=== PATIENT | male | born 1935 | race Caucasian/White ===

== ENCOUNTER 2018-12-20 20:00 | Emergency (ER) | payer MEDICARE, OTHER ==
[2018-12-20 20:33] VITALS: BP 129/89
--- NOTE | 2018-12-20 21:20 | UC ---
General HPI - HPI Summary HPI Summary: Pt is an 83 yo male presents to with . Since 2pm pt has had BRBPR. Pt states has had mild lower abdominal cramping - pt has had 3 loose stool - bloody appearing Pt wtih a h/o hemorrhoids and had to be hospitalized once for bleeding - pt assumed this is cause. No lightheadedness. n on/v. no cp sob. Pt is on Xarelto x 7 weeks for atrial fibrillation. No bruising medication reviewed this visit d - History of Current Complaint Chief Complaint: UCGI Stated Complaint: soft tissue Time Seen by Provider: 12/20/18 21:02 Hx Obtained From: Patient Pain Intensity: 0 - Allergy/Home Medications Allergies/Adverse Reactions: Allergies Allergy/AdvReac Type Severity Reaction Status Date / Time Penicillins Allergy Rash And Verified 12/20/18 20:34 Itching Art Wrap AdvReac Itching Uncoded 12/20/18 20:34 Home Medications: Home Medications Docusate CAP* [Colace Cap*] 100 mg PO DAILY 12/20/18 [History Confirmed 12/20/18 ] Mirabegron (NF) [Myrbetriq (NF)] 25 mg PO DAILY 12/20/18 [History Confirmed ] PMH/Surg Hx/FS Hx/Imm Hx Previously Healthy: Yes Cardiovascular History: Hypertension, Atrial Fibrillation - Surgical History Surgical History: Yes Surgery Procedure, Year, and Place: cholecystectomy - Family History Known Family History: Positive: Non-Contributory - Social History Occupation: Retired Lives: With Family Alcohol Use: Rare Substance Use Type: None Smoking Status (MU): Never Smoked Tobacco - Immunization History Most Recent Influenza Vaccination: 04/18 Most Recent Pneumonia Vaccination: Prevnar 04/18 Review of Systems All Other Systems Reviewed And Are Negative: Yes Constitutional: Positive: Negative Skin: Positive: Negative Eyes: Positive: Negative Gastrointestinal: Positive: Abdominal Pain, Other - BRBPR Physical Exam - Summary Physical Exam Summary: Vital Signs Reviewed: Yes A+Ox3, no distress Eyes: Conjunctiva Clear, NADER. EOM intact and full ENT: Hearing grossly normal TM x 2 clear, mmoist, uvula midline, no exudate, no erythema Neck: Positive: Supple Respiratory: Positive: No respiratory distress, No accessory muscle use + CTA throughout no w/r Cardiovascular: RRR nl s1, s2 no m/r CBT <2 sec abd soft + BS nt/nd no guarding, no distension Rectal exam: ADRIAN Rueda at bedside - Pt with apparent BRBPR. no clots no external hemorrhoids note, no fissure, no pain with rectal + grossly blood Musculoskeletal Exam: DUMONT x 4 without difficulty Strength Intact, ROM Intact Neurological: Positive: Alert, + sensation throughout Psychological: Positive: Normal Response To Family Skin: Positive: no rash, no ecchymosis Triage Information Reviewed: Yes Vital Signs: Initial Vital Signs Temp 98.6 F 12/20/18 20:28 Pulse 81 12/20/18 20:28 Resp 16 12/20/18 20:28 BP 129/89 12/20/18 20:28 Pulse Ox 98 12/20/18 20:28 Course/Dx - Course Course Of Treatment: Pt presents to UC with BRBPR x 3 times since 2pm. Pt with mild crampy abdominal pain and loose stools. Pt denies cp, sob, n/v Pt is on Xarelto No h/o GI bleeding + h/o hemorrhoid bleeding VSS pt without obvious source of rectal bleeding hemodynamically stable concern for GI bleeding given cramping and bloody appearing diarrhea pt on xarelto recommend to ED pt and sound in agreement - will drive by POV report given to sports book board attendant - aware of pt npo - direct to ED - Diagnoses Provider Diagnosis: BRBPR (bright red blood per rectum) Discharge - Sign-Out/Discharge Documenting (check all that apply): Patient Departure All imaging exams completed and their final reports reviewed: No Studies - Discharge Plan Condition: Stable Disposition: HOME-RECOMMEND TO ED Patient Education Materials: Melena (ED) Referrals: Jadiel Ayala MD [Primary Care Provider] - Additional Instructions: The doctor that evaluated you today thinks that you need additional testing that can be completed the emergency department. It is recommended that you go directly to emergency department for further evaluation. This evaluation may include blood work or imaging. This testing will be directed and decided by the provider that evaluate you at the emergency department. If pain becomes worse, you feel lightheaded, you have uncontrolled vomiting, or you have any other concerns while you are being driven to emergency department as recommended to pullover and contact 911. - Billing Disposition and Condition Condition: STABLE Disposition: Home-Recommend to ED
== END 2018-12-20 21:55 | disposition home health service (06) ==
LOC: UCEAST 20:00
DX: K62.5 Hemorrhage of anus and rectum (principal); Z79.01 Long term (current) use of anticoagulants
CPT/HCPCS: 99212; G0463

== ENCOUNTER 2018-12-20 22:08 | Observation (INO) | payer MEDICARE ==
--- NOTE | 2018-12-20 22:44 | ED ---
GI/ HPI - HPI Summary HPI Summary: 83 year old M presenting to [facility] from [facility] accompanied by with a chief complaint of rectal bleeding since 14:00 today. The patient rates the pain 3/10 in severity. Symptoms aggravated by nothing. Symptoms alleviated by nothing. Patient reports lower abdominal pain. He denies dizziness and lightheadedness. Patient thought he had a bleeding hemorrhoid because he had similar symptoms in 2018. Patient was seen by Dr. Contreras earlier at [facility] who referred patient to ED. Patient takes Xarelto for hx A-fib and 81 mg aspirin. His last colonoscopy was in 2015 which was normal. - History of Current Complaint Chief Complaint: EDGIBleed Time Seen by Provider: 12/20/18 22:35 Stated Complaint: RECTAL BLEEDING PER PT Hx Obtained From: Patient Onset/Duration: Started Hours Ago - 9, Still Present Timing: Constant Current Severity: Mild Pain Intensity: 3 Associated Signs and Symptoms: Positive: Negative - dizziness, lightheadedness, Other: - lower abdominal pain Aggravating Factor(s): Nothing Alleviating Factor(s): Nothing - Allergy/Home Medications Allergies/Adverse Reactions: Allergies Allergy/AdvReac Type Severity Reaction Status Date / Time Penicillins Allergy Rash And Verified 12/20/18 20:34 Itching Art Wrap AdvReac Itching Uncoded 12/20/18 20:34 Home Medications: Home Medications Metoprolol Succinate XL TAB* [Toprol XL TAB*] 25 mg PO DAILY 12/20/18 [History Confirmed 12/20/18] Primidone TAB(*) [Mysoline TAB(*)] 50 mg PO DAILY 12/20/18 [History Confirmed ] Rivaroxaban TAB(*) [Xarelto 15 mg(*)] 15 mg PO DAILY 12/20/18 [History Confirmed 12/20/18] PMH/Surg Hx/FS Hx/Imm Hx Previously Healthy: No Endocrine/Hematology History: Denies: Hx Diabetes, Hx Thyroid Disease Cardiovascular History: Reports: Hx Atrial Fibrillation Denies: Hx Hypertension Respiratory History: Denies: Hx Asthma, Hx Chronic Obstructive Pulmonary Disease (COPD) GI History: Denies: Hx Ulcer Sensory History: Reports: Hx Contacts or Glasses Opthamlomology History: Reports: Hx Contacts or Glasses - Surgical History Surgery Procedure, Year, and Place: cholecystectomy. colonoscopy Infectious Disease History: No Infectious Disease History: Reports: Hx Shingles - Denies: Hx Clostridium Difficile, Hx Hepatitis, Hx Human Immunodeficiency Virus (HIV), Hx of Known/Suspected MRSA, Hx Tuberculosis, Hx Known/Suspected VRE , Hx Known/Suspected VRSA, History Other Infectious Disease, Traveled Outside the [place] in Last 30 Days - Family History Known Family History: Positive: Other - colon cancer in father - Social History Alcohol Use: Rare Hx Substance Use: No Substance Use Type: Reports: None Hx Tobacco Use: No Smoking Status (MU): Never Smoked Tobacco Review of Systems Positive: Abdominal Pain, Other - rectal bleeding Neurological: Negative - dizziness, lightheadedness All Other Systems Reviewed And Are Negative: Yes Physical Exam - Summary Physical Exam Summary: VITAL SIGNS: Reviewed. GENERAL: Patient is a well-developed and nourished MALE who is lying comfortable in the stretcher. Patient is not in any acute respiratory distress. HEAD AND FACE: No signs of trauma. No ecchymosis, hematomas or skull depressions. No sinus tenderness. EYES: PERRLA, EOMI x 2, No injected conjunctiva, no nystagmus. EARS: Hearing grossly intact. Ear canals and tympanic membranes are within normal limits. MOUTH: Oropharynx within normal limits. NECK: Supple, trachea is midline, no adenopathy, no JVD, no carotid bruit, no c- spine tenderness, neck with full ROM CHEST: Symmetric, no tenderness at palpation LUNGS: Clear to auscultation bilaterally. No wheezing or crackles. CVS: Regular rate and rhythm, S1 and S2 present, no murmurs or gallops appreciated. ABDOMEN: Soft, non-tender. No signs of distention. No rebound no guarding, and no masses palpated. Bowel sounds are normal. EXTREMITIES: FROM in all major joints, no edema, no cyanosis or clubbing. NEURO: Alert and oriented x 3. No acute neurological deficits. Speech is normal and follows commands. SKIN: Dry and warm. Patient has an old ecchymotic area on his back from falling 1.5 months ago. Rectal exam chaperoned by hospital aide: Patient has no masses, an empty rectum. There is maroon blood on the examining finger. Triage Information Reviewed: Yes Vital Signs On Initial Exam: Initial Vitals Temp Pulse Resp BP Pulse Ox 97.7 F 79 18 123/101 97 12/20/18 22:16 12/20/18 22:16 12/20/18 22:16 12/20/18 22:16 12/20/18 22:16 Vital Signs Reviewed: Yes Diagnostics - Vital Signs Vital Signs Temp Pulse Resp BP Pulse Ox 12/20/18 22:16 97.7 F 79 18 123/101 97 - Laboratory Result Diagrams: 12/20/18 23:00 12/20/18 23:00 Lab Statement: Any lab studies that have been ordered have been reviewed, and results considered in the medical decision making process. - EKG 2246 Cardiac Rate: NL - 75 BPM EKG Rhythm: Atrial Fibrillation Re-Evaluation - Re-Evaluation First Eval Re-Evaluation Time: 23:46 Comment: Patient is agreeable to admission plan GIGU Course/Dx - Course Course Of Treatment: 83 year old M presenting to [facility] from [facility] accompanied by with a chief complaint of rectal bleeding and lower abdominal pain since 14:00 today. He denies dizziness and lightheadedness. Patient thought he had a bleeding hemorrhoid because he had similar symptoms in 2018. Physical exam findings: Patient has no masses, an empty rectum. There is maroon blood on the examining finger. Patient has an old ecchymotic area on his back from falling 1.5 months ago. An EKG reveals atrial fibrillation at 75 BPM. Test results with no significant abnormalities except for RBC 4.16, Hgb 12.7, Hct 37, MPV 7.3, INR 1.19, BUN 25, BUN/Creatinine ratio 22.1, glucose 110. Discussed patient care with Dr. Merchant, hospitalist, at 23:43 who agreed to admit patient. The patient will be admitted to the hospitalist. Patient is agreeable to discharge plan. - Diagnoses Provider Diagnoses: Lower GI bleed - Physician Notifications Discussed Care Of Patient With: Tayler Merchant Time Discussed With Above Provider: 23:43 Instructed by Provider To: Other - Dr. Merchant, hospitalist, agrees to admit patient Discharge - Sign-Out/Discharge Documenting (check all that apply): Patient Departure - Admit Patient Received Moderate/Deep Sedation with Procedure: No - Discharge Plan Condition: Stable Disposition: ADMITTED TO [facility] Referrals: Jadiel Ayala MD [Primary Care Provider] - - Attestation Statements Document Initiated by Scribe: Yes Documenting Scribe: Pao Aguero Provider For Whom Scribe is Documenting (Include Credential): Alice Funez MD Scribe Attestation: I, Pao Aguero, scribed for Alice Funez MD on 12/20/18 at 2343. Status of Scribe Document: Ready
[2018-12-20 23:11] LABS: ABS Eosinophils 0.2 10^3/ul (0-0.6); ABS Lymphocytes 2.1 10^3/ul (1.0-4.8); ABS Monocytes 0.7 10^3/ul (0-0.8); ABS Neutrophils 3.8 10^3/ul (1.5-7.7); Eosinophil % 2.2 %; Hematocrit 37 % (42-52); Hemoglobin 12.7 g/dL (14.0-18.0); Lymphocyte % 31.1 %; Mean Corpuscular HGB Conc 34 g/dL (31-36); Mean Corpuscular Hemoglobin 31 pg (27-31); Mean Corpuscular Volume 89 fL (80-94); Mean Platelet Volume 7.3 fL (7.4-10.4); Platelet Count 207 10^3/uL (150-450); Red Blood Count 4.16 10^6 /uL (4.18-5.48); Red Cell Distribution Width 15 % (10-15); White Blood Count 6.8 10^3/uL (3.5-10.8)
[2018-12-20 23:20] LABS: Activated Partial Thrombo Time 32.2 seconds (26.0-38.0); INR 1.19 (0.82-1.09)
[2018-12-20 23:30] LABS: Albumin 3.9 g/dL (3.2-5.2); Albumin/Globulin Ratio 1.5 (1-3); BUN/Creatinine Ratio 22.1 (8-20); Globulin 2.6 g/dL (2-4); Potassium 4.9 mmol/L (3.5-5.0); Total Bilirubin 0.4 mg/dL (0.2-1.0); Total Protein 6.5 g/dL (6.4-8.9)
[2018-12-21 04:03] LABS: Hematocrit 34 % (42-52); Hemoglobin 11.6 g/dL (14.0-18.0)
[2018-12-21] MEDS ORDERED: Acetaminophen TAB* 325 MG PO PRN (04:03)
--- NOTE | 2018-12-21 06:08 | HP ---
HISTORY AND PHYSICAL: DATE OF ADMISSION: 12/21/18 PRIMARY CARE PROVIDER: Jadiel Ayala MD PRIMARY CONTACT: Sonia Mckee, the patient's . CODE STATUS: Full. CHIEF COMPLAINT: Bright red blood per rectum. SOURCE OF INFORMATION: HPI is obtained from the patient who is an excellent historian. HISTORY OF PRESENT ILLNESS: This is an 83-year-old man with a past medical history of recently diagnosed atrial fibrillation, placed on Xarelto within the last 2 months, tremor, overactive bladder, and BPH who is presenting from [facility] to the emergency room with 1 day of bright red blood per rectum. The patient states starting around 2 p.m., he had a bloody bowel movement and noticed significant blood in the bowl. He went to the [facility] because he thought that it was possibly an external hemorrhoid and guaiac was positive with no hemorrhoid noted in [facility] and thus he was referred to the emergency room. He has mild lower abdominal crampy pain when he has bowel movements, but otherwise has no other symptoms and was in his usual state of health. He has no melena. No diarrhea. No constipation. No hematemesis. No nausea. In the emergency room, his vital signs were stable with temperature 97.7, heart rate 79, oxygen saturation 97% on room air, respiratory rate 18, blood pressure 123/101. Labs were done, which show a hemoglobin of 12.7, hematocrit of 37, platelets of 207. No imaging was done. EKG was done, which showed atrial fibrillation, rate controlled in 80s with no signs of ischemia. The patient continued to have several bloody bowel movements in the emergency room, a total of 3 and thus the patient was admitted for observation given recurrent symptoms. PAST MEDICAL HISTORY: 1. AFib, recently diagnosed within the last 3 months, on Xarelto. 2. Tremor. 3. Overactive bladder. 4. BPH. PAST SURGICAL HISTORY: Status post cholecystectomy. MEDICATIONS: Prior to admission: 1. Aspirin 81 mg p.o. daily. 2. CoQ10 50 mg p.o. daily. 3. Tylenol PM 1 tablet q.h.s. p.r.n. 4. Fish oil 1000 mg p.o. daily. 5. Glucosamine 2 tabs p.o. daily. 6. Myrbetriq 25 mg p.o. daily. 7. Multivitamins 1 tab p.o. daily. 8. Rivaroxaban 15 mg p.o. daily. 9. Docusate 100 mg p.o. daily. 10. Metoprolol succinate 25 mg p.o. daily. 11. Primidone 50 mg p.o. daily. 12. Tamsulosin 0.4 mg p.o. daily. ALLERGIES: To PENICILLIN and JAUN WRAP. 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 He lives at home with his . Tobacco: He is a lifetime nonuser. Alcohol: He is a social user, scant. Illicits: Never. FAMILY HISTORY: Reviewed and noncontributory. He reports both his parents were healthy. REVIEW OF SYSTEMS: Constitutional: Negative for fevers or chills. HEENT: Negative for headaches, vision changes, or sore throat. Cardiovascular: Negative for chest pain, palpitations, orthopnea. Respiratory: Negative for shortness of breath, cough, pleuritic chest pain. GI: Negative for nausea, vomiting, diarrhea. Positive for abdominal pain. Positive for bright red blood per rectum. : Negative for dysuria and hematuria. Musculoskeletal: Negative for myalgias, arthralgias. Skin: Negative for rashes or lesions. Neurologic: Negative for focal weakness or numbness. Psychiatric: Negative for depression, anxiety. Endocrine: Negative for polyuria, polydipsia. Heme: Negative for easy bruising, bleeding, or lymphadenopathy. PHYSICAL EXAMINATION GENERAL APPEARANCE: This is a very well-appearing male, in no acute distress, pleasant, interactive. VITAL SIGNS: At the time of physical exam, blood pressure is 123/101, temperature 97.7, heart rate 79, respiratory rate 18. HEENT: Pupils are equal and reactive. Extraocular muscles are intact. Moist mucous membranes. NECK: Supple with no supraclavicular or cervical lymphadenopathy. RESPIRATORY: His lungs are clear to auscultation bilaterally. CARDIAC: Irregularly irregular rhythm with a soft diastolic murmur, best heard in the right upper sternal border, 1/6. GI: His belly is distended, but soft, nontender with normoactive bowel sounds. No guarding. No rebound. No organomegaly. EXAM: Emergency room provider provided rectal exam, noted no external hemorrhoids and maroon blood in the vault. MUSCULOSKELETAL: He moves all 4 limbs freely without pain. EXTREMITIES: He has 2+ DP pulses in bilateral lower extremities, symmetrical. No edema. NEURO: Cranial nerves II through XII are intact. He is A and O x4. No focal neurological deficits. SKIN: No rashes or lesions. DIAGNOSTIC STUDIES/LAB DATA: Labs and studies, white blood cell count 6.8, hemoglobin 12.7, hematocrit 37, platelets 207. INR 1.19. Sodium 136, potassium 4.9, chloride 105, BUN 25, creatinine 1.13, glucose 110. AST 26, ALT 24, alk phos 61. EKG shows atrial fibrillation, rate controlled with no evidence of ischemia. Labs and EKG reviewed by myself. ASSESSMENT AND PLAN: This is an 83-year-old man with past medical history of recently diagnosed atrial fibrillation, on Xarelto; tremor; overactive bladder, who is presenting with bright red blood per rectum, the differential for this internal hemorrhoids, diverticular bleed, less likely upper GI bleed given hemodynamic stability and less likely external hemorrhoids given none seen on exam. He will be admitted for observation given he has continued bloody bowel movements here in the emergency room and repeat H and H dropped from 12.7 to 11.6 within the time he was in the hospital. 1. Bright red blood per rectum. Differential as above. We will trend H and H. We will continue docusate. I have placed a consult to GI to discuss the merits of intervention with this patient. We will hold Xarelto. We will hold aspirin at this time. We will start pantoprazole 40 mg IV q.24 hours given the very unlikely event this is related to upper GI bleed. 2. Atrial fibrillation. The patient is rate controlled. CHADS-VASc score is 1 based on age alone. If the patient is unable to tolerate anticoagulation, it is possible that he could have shared decision making discussion with primary care physician to discuss the risks and benefits of anticoagulation moving forward. For now, we will continue metoprolol and hold anticoagulants given active bleed. 3. Benign prostatic hypertrophy. We will continue home tamsulosin. 4. Tremor. We will continue home primidone. 5. Overactive bladder. Myrbetriq is not on formulary. We will hold for now. 6. DVT prophylaxis. We will hold all given active bleed. 7. Diet. We will place the patient on clear liquid diet for now. He can tolerate as advanced pending GI discussion. 8. Disposition. The patient is stable for observation status for continued H and H monitoring given ongoing active bloody bowel movements here in the emergency room. 9. Code status is full. TIME SPENT: Thirty-five minutes were spent on the planning of this admission with over half of that spent directly at the bedside with the patient providing direct patient care. Plan of care is discussed with the patient who agrees with admission and has no further questions. [id number]/CPS #: [id number] GEOVANY
[2018-12-21] MEDS: Pantoprazole TAB * 40 MG TAB PO SCH (06:25)
[2018-12-21] MEDS: Tamsulosin CAP* 0.4 MG PO SCH (08:43)
[2018-12-21] MEDS: Docusate CAP* 100 MG PO SCH (08:43)
[2018-12-21] MEDS: Metoprolol Succinate XL TAB* 25 MG PO SCH (08:43)
[2018-12-21] MEDS ORDERED: Primidone TAB(*) 50 MG PO SCH (09:00)
--- NOTE | 2018-12-21 09:41 | PN ---
Subjective Date of Service: 12/21/18 Interval History: Patient reports 3 additional bloody bowel movements since midnight. He is unsure if there was formed stool in two of the three bowel movements due to the amount of bright red blood in the toilet. He reports intermittent, central, lower abdominal pain which has unchanged since admission. Denies dizziness, fever/chills, chest pain, difficulty breathing, nausea, vomiting. Tolerating clear liquid diet. Objective Active Medications: Acetaminophen (Tylenol Tab*) 650 mg PO Q4H PRN PRN Reason: FEVER/PAIN Docusate Sodium (Colace Cap*) 100 mg PO DAILY [facility] Last Admin: 12/21/18 08:43 Dose: Not Given Metoprolol Succinate (Toprol Xl Tab*) 25 mg PO DAILY [facility] Last Admin: 12/21/18 08:43 Dose: 25 mg Pantoprazole Sodium (Protonix Tab*) 40 mg PO Q24H [facility] Last Admin: 12/21/18 06:25 Dose: 40 mg Primidone (Mysoline Tab(*)) 50 mg PO DAILY [facility] Last Admin: 12/21/18 08:44 Dose: 50 mg Tamsulosin HCl (Flomax Cap*) 0.4 mg PO DAILY [facility] Last Admin: 12/21/18 08:43 Dose: 0.4 mg Vital Signs - 8 hr 12/21/18 12/21/18 12/21/18 02:00 02:02 02:32 Temperature Pulse Rate 80 85 81 Respiratory 13 12 13 Rate Blood Pressure 142/102 153/89 (mmHg) O2 Sat by Pulse 96 97 95 Oximetry 12/21/18 12/21/18 12/21/18 03:00 03:02 03:32 Temperature Pulse Rate 80 83 77 Respiratory 13 15 14 Rate Blood Pressure 132/86 113/70 (mmHg) O2 Sat by Pulse 96 95 95 Oximetry 12/21/18 12/21/18 12/21/18 04:00 04:02 04:32 Temperature Pulse Rate 84 84 Respiratory 11 14 Rate Blood Pressure 134/94 134/93 (mmHg) O2 Sat by Pulse 97 95 Oximetry 12/21/18 12/21/18 12/21/18 05:00 05:02 05:07 Temperature 98.3 F Pulse Rate 78 81 82 Respiratory 13 13 20 Rate Blood Pressure 130/91 148/94 (mmHg) O2 Sat by Pulse 95 95 99 Oximetry 12/21/18 12/21/18 05:30 07:24 Temperature 97.4 F 97.8 F Pulse Rate 80 77 Respiratory 14 16 Rate Blood Pressure 130/91 116/65 (mmHg) O2 Sat by Pulse 96 99 Oximetry Oxygen Devices in Use Now: None Appearance: Elderly, white male laying upright in hospital bed, appearing comfortable and in NAD Eyes: No Scleral Icterus, PERRLA Ears/Nose/Mouth/Throat: Mucous Membranes Moist Neck: NL Appearance and Movements; NL JVP Respiratory: Symmetrical Chest Expansion and Respiratory Effort, Clear to Auscultation Cardiovascular: NL Sounds; No Murmurs; No JVD, RRR Abdominal: NL Sounds; No Tenderness; No Distention Extremities: No Edema, No Clubbing, Cyanosis, - - Bilateral UE tremor, consistent with chronic essential tremor Skin: No Rash or Ulcers Neurological: Alert and Oriented x 3, NL Muscle Strength and Tone Result Diagrams: 12/21/18 13:47 12/20/18 23:00 Assess/Plan/Problems-Billing Assessment: 83 yo male with PMHx afib (on xarelto), tremor, overactive bladder, and BPH presents to the ED c/o multiple episodes of bright red blood per rectum. - Patient Problems (1) Bright red blood per rectum Code(s): K62.5 - HEMORRHAGE OF ANUS AND RECTUM SNOMED Code(s): 21368355 Comment: -multiple episodes of BRBPR without evidence of hemorrhoid on rectal exam in ED -patient has known hx of diverticulosis, suspect a diverticular bleed as source of GI bleed -H&H downtrending, continue to monitor q8h; hemoglobin 11.6 early this AM -clear liquid diet pending GI consult; appreciate recommendations -continue pantoprazole in case source of bleed is upper GI -holding home ASA and xarelto -no leukocytosis, pt is afebrile; with intermittent lower abd pain but otherwise comfortable; BRBPR continues this AM (2) Atrial fibrillation Code(s): I48.91 - UNSPECIFIED ATRIAL FIBRILLATION SNOMED Code(s): 41833039 Comment: -continue home metoprolol -holding home xarelto and aspirin in setting of GI bleed -rate controlled (3) Essential tremor Code(s): G25.0 - ESSENTIAL TREMOR SNOMED Code(s): 522960911 Comment: -continue home primodone (4) BPH (benign prostatic hyperplasia) Code(s): N40.0 - BENIGN PROSTATIC HYPERPLASIA WITHOUT LOWER URINRY TRACT SYMP SNOMED Code(s): 817733735 Comment: -continue home tamsulosin (5) DVT prophylaxis Code(s): Z29.9 - ENCOUNTER FOR PROPHYLACTIC MEASURES, UNSPECIFIED SNOMED Code( s): 280063613 Comment: -contraindicated in setting of active GI bleed (6) Full code status Code(s): Z78.9 - OTHER SPECIFIED HEALTH STATUS SNOMED Code(s): 793668896
[2018-12-21 13:58] LABS: Hematocrit 27 % (42-52); Hemoglobin 9.3 g/dL (14.0-18.0)
[2018-12-21] MEDS ORDERED: PEG 3000 GI LAVAGE* 1 GALLON PO ONE (17:47)
[2018-12-21 20:40] LABS: Hematocrit 27 % (42-52); Hemoglobin 9.2 g/dL (14.0-18.0)
--- NOTE | 2018-12-21 21:09 | CONS ---
GASTROENTEROLOGY CONSULT REPORT: DATE OF CONSULT: 12/21/18 REASON FOR CONSULT: Bright red blood per rectum and anemia. PRIMARY CARE PROVIDER: Dr. Jadiel Ayala. HISTORY OF PRESENT ILLNESS: Mr. Mckee is a merle 83-year-old with a history of atrial fibrillation, recently started on Xarelto, who is admitted with hematochezia. Mr. Mckee has a history of atrial fibrillation and was started on Xarelto approximately 6 weeks ago. He was doing well until yesterday at around 2 p.m. when he started having bright red blood per rectum. He had multiple episodes of the bloody bowel movements and presented to the ER for evaluation. In the ER , he continued to have episodes of bloody bowel movements and was admitted for further observation. The patient has been hemodynamically stable since admission. Labs notable for a hemoglobin of 12.7 on admission, which is decreased to 11.6 and then 9.3 this afternoon. On interview, the patient states that he has had some mild cramping and gas discomfort, particularly in the lower abdomen. Abdominal discomfort seems to be a bit improved today. He has continued to have bloody bowel movements with at least 5 stools today. Last bowel movement was around 4 p.m. He felt like there was a bit less red blood in the toilet bowl with the last bowel movement. Denies seeing any melena. No nausea or vomiting. Denies a history of constipation or diarrhea. Denies any other symptoms and feels fairly well overall. Last colonoscopy was performed in May 2016. He was noted to have diffuse diverticulosis and 2 polyps were removed. Both polyps were tubular adenomas. Recommendation was to discontinue colon cancer screening given age. PAST MEDICAL HISTORY: 1. Atrial fibrillation, recently started on Xarelto. 2. Essential tremor. 3. Overactive bladder. 4. BPH. 5. Diverticulosis. 6. History of colon polyps. PAST SURGICAL HISTORY: Cholecystectomy. MEDICATIONS: Prior to admission, the patient was on: 1. Aspirin 81 mg daily. 2. Coenzyme Q10 50 mg daily. 3. Tylenol PM at bedtime as needed. 4. Fish oil 1 g daily. 5. Glucosamine 2 tablets daily. 6. Myrbetriq 25 mg daily. 7. Multivitamin daily. 8. Rivaroxaban 15 mg daily. 9. Colace daily. 10. Metoprolol 25 mg daily. 11. Primidone 50 mg daily. 12. Tamsulosin 0.4 mg daily. ALLERGIES: PENICILLIN and JAUN WRAP. FAMILY HISTORY: The patient has a father with colon cancer, per prior colonoscopy reports from Dr. Yu. 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 Lives at home with his . Lifetime nonsmoker. Rare social alcohol use. No drug use. REVIEW OF SYSTEMS: Complete 12-point review of systems negative except as mentioned above. PHYSICAL EXAM: Vital Signs: Reviewed. Most recent heart rate 73, blood pressure 103/56, 90% on room air. General: A pleasant elderly gentleman. In no acute distress. Sitting up and drinking tea in bed. at bedside. HEENT: Mucous membranes are moist. Cardiac: Regularly irregular rhythm. Pulmonary: Breathing comfortably. GI: Soft, nontender, nondistended. Normoactive bowel sounds. Extremities: No edema. Neurologic: A and O x3. No gross neuro deficits. DIAGNOSTIC STUDIES/LAB DATA: Labs reviewed. White count 6.8. Hemoglobin 12.7 on admission. Hgb down to 9.3. Hematocrit 37 on admission, now down to 27. Platelet count 207. INR of 1.19. BUN 25, creatinine 1.13, glucose 110. Liver enzymes normal. Imaging: No abdominal imaging. Endoscopy: Colonoscopy report from 2016 summarized in the HPI. IMPRESSION AND PLAN: Mr. Mckee is an 83-year-old gentleman with a history of recently diagnosed atrial fibrillation, on Xarelto, who presents with hematochezia and progressive anemia over the past 24 to 48 hours. The patient has remained hemodynamically stable. Hemoglobin has dropped by 3 grams since admission. Bleeding per description is quite suggestive of a lower gastrointestinal bleed with diverticular bleed as the most probable diagnosis. Arteriovenous malformation also possible in the setting of anticoagulation. arge polyp or mass unlikely given patient's colonoscopy in 2016 with only small polyps noted. Upper gastrointestinal bleed felt to be less likely given the absence of melena. 1. Continue to monitor CBC every 6 to 8 hours. 2. Continue to hold anticoagulation. 3. Clears today. NPO after midnight. 4. Recommend GoLYTELY prep. Would have the patient drink 2 liters tonight to help flush the colon. This can help determine if bleeding has resolved or if bleeding continues. Depending on lab trend and presence or absence of ongoing bleeding over next 12 hours, we can discuss if a colonoscopy should be performed tomorrow. If a colonoscopy is felt to be indicated, then patient will likely need to drink the remainder of the colonoscopy prep tomorrow morning with the procedure in the early to mid afternoon. Dr. Mata will discuss final plan with primary team tomorrow. Thank you very much for this consult. GI will continue to follow along. Please notify GI if any acute clinical change. [id number]/[facility] #: [id number] [place]
[2018-12-22 05:54] LABS: Hematocrit 27 % (42-52); Hemoglobin 9.4 g/dL (14.0-18.0); Mean Corpuscular HGB Conc 35 g/dL (31-36); Mean Corpuscular Hemoglobin 31 pg (27-31); Mean Corpuscular Volume 89 fL (80-94); Mean Platelet Volume 7.1 fL (7.4-10.4); Platelet Count 163 10^3/uL (150-450); Red Blood Count 3.06 10^6 /uL (4.18-5.48); Red Cell Distribution Width 15 % (10-15); White Blood Count 5.6 10^3/uL (3.5-10.8)
[2018-12-22] MEDS: Pantoprazole TAB * 40 MG TAB PO SCH (06:13)
[2018-12-22] MEDS: Docusate CAP* 100 MG PO SCH (07:22)
[2018-12-22] MEDS: Tamsulosin CAP* 0.4 MG PO SCH (07:22)
[2018-12-22] MEDS: Metoprolol Succinate XL TAB* 25 MG PO SCH (07:22)
[2018-12-22] MEDS ORDERED: PEG 3000 GI LAVAGE* 1 GALLON PO ONE (08:22)
[2018-12-22] MEDS ORDERED: fentaNYL* 50 MCG/ML 2 ML VIAL (100 MCG VIAL) ONE (13:54)
[2018-12-22] MEDS ORDERED: Midazolam* 1 MG/ML 10 ML VIAL (10 MG) ONE (13:54)
--- NOTE | 2018-12-22 15:38 | PN ---
Progress Note - Progress Note Date of Service: 12/22/18 Note: GI Brief Colonoscopy Note Colonoscopy to Ileum x 30cm Scattered old blood throughout, no fresh blood or active bleeding Diffuse severe diverticulosis throughout entire colon Some scant old blood in distal TI, likely backwash 1 small polyp removed in rectum. Rec: Likely diverticular bleed or less likely distal small bowel. No active bleeding Full liquids today, if hgb stable and no overt bleeding on 12/23 can advance diet and d/c High risk for anticoagulation from GI POV as his diverticular disease is quite severe No anticoagulation may be most prudent but would defer to Primary team and his outpatient care coordination manager in followup. Jacek Mata DO 12/23/18 [id number]
[2018-12-22 16:10] LABS: Hematocrit 27 % (42-52); Hemoglobin 9.5 g/dL (14.0-18.0)
--- NOTE | 2018-12-22 18:17 | PN ---
Subjective Date of Service: 12/22/18 Interval History: Patient evaluated after colonoscopy. Patient feeling well at time of visit. Reports some abdominal discomfort earlier this morning when completing golytely prep but didn't experience nausea/vomiting. Denies chest pain, difficulty breathing, fever/chills, dizziness/lightheadedness. Has not had a BM since colonoscopy. Objective Active Medications: Acetaminophen (Tylenol Tab*) 650 mg PO Q4H PRN PRN Reason: FEVER/PAIN Docusate Sodium (Colace Cap*) 100 mg PO DAILY [facility] Last Admin: 12/22/18 07:22 Dose: Not Given Metoprolol Succinate (Toprol Xl Tab*) 25 mg PO DAILY [facility] Last Admin: 12/22/18 07:22 Dose: Not Given Pantoprazole Sodium (Protonix Tab*) 40 mg PO Q24H [facility] Last Admin: 12/22/18 06:13 Dose: Not Given Primidone (Mysoline Tab(*)) 50 mg PO BEDTIME [facility] Tamsulosin HCl (Flomax Cap*) 0.4 mg PO DAILY [facility] Last Admin: 12/22/18 07:22 Dose: Not Given Vital Signs - 8 hr 12/22/18 12/22/18 11:36 15:58 Temperature 97.7 F 97.7 F Pulse Rate 82 78 Respiratory 16 16 Rate Blood Pressure 132/82 134/73 (mmHg) O2 Sat by Pulse 100 99 Oximetry Oxygen Devices in Use Now: None Appearance: Elderly white male, laying upright in hospital bed appearing in NAD , at bedside Eyes: No Scleral Icterus, PERRLA Ears/Nose/Mouth/Throat: Mucous Membranes Moist Neck: NL Appearance and Movements; NL JVP Respiratory: Symmetrical Chest Expansion and Respiratory Effort, Clear to Auscultation Cardiovascular: RRR, - - Grade I diastolic murmur Abdominal: NL Sounds; No Tenderness; No Distention Extremities: No Edema, No Clubbing, Cyanosis Skin: No Rash or Ulcers Neurological: Alert and Oriented x 3, NL Muscle Strength and Tone Result Diagrams: 12/22/18 16:00 12/20/18 23:00 Assess/Plan/Problems-Billing Assessment: 83 yo male with PMHx afib (on xarelto), tremor, overactive bladder, and BPH presents to the ED c/o multiple episodes of bright red blood per rectum. - Patient Problems (1) Bright red blood per rectum Code(s): K62.5 - HEMORRHAGE OF ANUS AND RECTUM SNOMED Code(s): 23232739 Comment: -multiple episodes of BRBPR without evidence of hemorrhoid on rectal exam in ED -patient has known hx of diverticulosis, suspect a diverticular bleed as source of GI bleed -colonoscopy performed today by Dr. Mata, believes most likely cause is diverticular bleed or less likely a distal small bowel; given patient has extensive diverticulosis believes patient to be high risk of repeat bleed -d/c pantoprazole given bleed is not upper GI -holding home ASA and xarelto -Hgb 9.5 this afternoon after colonscopy, will repeat in AM -Dr. Mata advised full liquid diet this evening and advance as tolerated (2) Atrial fibrillation Code(s): I48.91 - UNSPECIFIED ATRIAL FIBRILLATION SNOMED Code(s): 81926761 Comment: -continue home metoprolol -holding home xarelto and aspirin in setting of GI bleed -rate controlled -discussed risk of TIA/stroke as 2.9% and HAS BLED score demonstrates 4.1% risk of bleeding; patient in agreement to discontinue xarelto given bleed risk; patient will discuss with his bus steward in [place] and schedule local cardiology appointment if recommended (3) Essential tremor Code(s): G25.0 - ESSENTIAL TREMOR SNOMED Code(s): 989453538 Comment: -continue home primodone (4) BPH (benign prostatic hyperplasia) Code(s): N40.0 - BENIGN PROSTATIC HYPERPLASIA WITHOUT LOWER URINRY TRACT SYMP SNOMED Code(s): 885047831 Comment: -continue home tamsulosin (5) DVT prophylaxis Code(s): Z29.9 - ENCOUNTER FOR PROPHYLACTIC MEASURES, UNSPECIFIED SNOMED Code( s): 523624617 Comment: -contraindicated in setting of GI bleed (6) Full code status Code(s): Z78.9 - OTHER SPECIFIED HEALTH STATUS SNOMED Code(s): 101545723 Status and Disposition: Observing hemoglobin overnight and likely d/c tomorrow
[2018-12-22] MEDS ORDERED: Primidone TAB(*) 50 MG PO SCH (21:00)
--- NOTE | 2018-12-22 21:17 | PRO ---
CC: Dr. Jadiel Ayala * COLONOSCOPY REPORT: DATE OF PROCEDURE: 12/22/18 - ROOM #415 PRIMARY CARE PHYSICIAN: Dr. Jadiel Ayala. INDICATION FOR PROCEDURE: Rectal bleeding. PROCEDURE PERFORMED: Complete colonoscopy to the terminal ileum x 25 to 30 cm. MEDICATIONS GIVEN: Include 4 mg IV midazolam, 50 mcg IV fentanyl. DESCRIPTION OF PROCEDURE: After the colonoscopy procedure including the risks, benefits, and alternatives, with the risks not limited to perforation, surgery, missed lesions and/or were explained to the patient, written informed consent was obtained. IV medication was given and a rectal exam was performed. Rectal exam was unremarkable. The adult Olympus colonoscope was then inserted into the patient's rectum and advanced very carefully through the entirety of the colon and into the cecal base. There was some scant old blood throughout the colon, but no active bleeding was visualized. He had diffuse severe diverticular disease throughout the entirety of the colon with no specific section being spared. I thoroughly washed the entirety of the colon along the way and no active bleeding was seen. The preparation was good. A photograph was taken of the cecal cap. The terminal ileum was then intubated for roughly 25 to 30 cm. Additionally, there was some scant old blood, however , the deeper I went, this became less apparent to be more with potentially reflux from the colon versus a primary small bowel source. I then returned to the cecum and slowly withdrew over the next 7 minutes inspecting the mucosa. A small polyp was visualized in the rectum. This was removed with biopsy polypectomy in the entirety. No active bleeding was seen during the entirety of the exam. I returned to the rectum. Direct views were otherwise normal. On retroflexion, the views were normal as well. The scope was then removed from the patient. He tolerated the procedure well. He returned to the recovery room in stable condition. IMPRESSION: 1. Complete colonoscopy to the terminal ileum with biopsy polypectomy. 2. No active bleeding, scant old blood throughout. 3. Severe diverticulosis coli throughout the entirety of the colon. 4. Scant old blood in the TI, likely backwash, less likely primary small bowel bleed. RECOMMENDATIONS: At this point, there is no sign of active bleeding. Given his severe diverticular disease, I think he is high risk for anticoagulation in the future. We would ultimately defer final say to a combination of the patient , the primary care physician and the outpatient supervisor sterile processing, however, his [id number] score is relatively low and I think potentially holding anticoagulation may be the most prudent. For acute management, we will place the patient on full liquids today, monitor the hemoglobin. On 12/23/18, there is no evidence of overt bleeding and if hemoglobin is stable, his diet may be advanced and he can be safely discharged. He may follow up with me as needed if any further concerns. [id number]/[facility] #: [id number] [place]
[2018-12-23 05:26] LABS: Hematocrit 31 % (42-52); Mean Corpuscular HGB Conc 35 g/dL (31-36); Mean Corpuscular Hemoglobin 33 pg (27-31); Mean Corpuscular Volume 94 fL (80-94); Mean Platelet Volume 6.8 fL (7.4-10.4); Platelet Count 688 10^3/uL (150-450); Red Blood Count 3.35 10^6 /uL (4.18-5.48); Red Cell Distribution Width 14 % (10-15); White Blood Count 9.7 10^3/uL (3.5-10.8)
[2018-12-23 07:00] LABS: Calcium 8.9 mg/dL (8.6-10.3); Potassium 3.9 mmol/L (3.5-5.0)
[2018-12-23 07:06] LABS: BUN/Creatinine Ratio 11.6 (8-20); EGFR African American 91.6 (>60); EGFR Non-African American 75.7 (>60)
[2018-12-23 08:53] VITALS: BP 115/63
[2018-12-23] MEDS: Metoprolol Succinate XL TAB* 25 MG PO SCH (08:58)
[2018-12-23] MEDS: Tamsulosin CAP* 0.4 MG PO SCH (08:58)
[2018-12-23] MEDS: Docusate CAP* 100 MG PO SCH (08:58)
--- NOTE | 2018-12-23 22:55 | DS ---
CC: Dr. Voss; Dr. Mata; Dr. Jdaiel Ayala * DISCHARGE SUMMARY: DATE OF ADMISSION: 12/21/18 DATE OF DISCHARGE: 12/23/18 PRIMARY CARE PROVIDER: Dr. Jadiel Ayala. ATTENDING PHYSICIAN WHILE IN THE HOSPITAL: Dr. Karyn Chiu * (dictated by ANA MARIA Ruiz). CONSULTING RADIO ASSEMBLER: Dr. Voss, Dr. Mata. PRIMARY DIAGNOSES: Upper gastrointestinal bleed likely secondary to extensive diverticulosis. SECONDARY DIAGNOSES: 1. Atrial fibrillation, on Xarelto. 2. Tremor. 3. Overactive bladder. 4. Benign prostatic hyperplasia. PROCEDURES WHILE IN THE HOSPITAL: Colonoscopy on 12/24/[address] Mata, scattered old blood throughout, no fresh blood or active bleeding. Diffuse severe diverticulosis throughout the entire colon. Some scant old blood in distal TI, likely backwash. One small polyp removed in the rectum. RECOMMENDATIONS: High risk for anticoagulation from GI point of view. Pertinent lab data: Hemoglobin on day of admission 12.7, lowest hemoglobin 9.2 , hemoglobin on the day of discharge 11.0. DISCHARGE MEDICATIONS: None. Continued home medications: 1. CoQ10 50 mg p.o. daily. 2. Tylenol p.r.n. 1 tab p.o. daily. 3. Colace 100 mg p.o. daily. 4. Fish oil 1000 mg p.o. daily. 5. Glucosamine 2 tabs p.o. daily. 6. Metoprolol succinate 25 mg p.o. daily. 7. Multivitamin 1 tab p.o. daily. 8. Primidone 50 mg p.o. daily. 9. Flomax 0.4 mg p.o. daily. 10. Mirabegron 30 mg p.o. daily. HISTORY OF PRESENT ILLNESS/HOSPITAL COURSE: Ron Mckee is an 83-year-old white male with past medical history significant for atrial fibrillation, on Xarelto; overactive bladder; BPH, who presented to the emergency department due to bright red blood per rectum on 12/21/18. Please see admitting history and physical dictated by Dr. Merchant for further information. During the patient's hospital stay, his lowest hemoglobin was 9.2 and therefore never required transfusions. Colonoscopy revealed that the source of his GI bleed was likely due to extensive diverticulosis. After a colonoscopy, he did not have further bowel movements including no blood per rectum. This has resolved at this point. During his hospital stay, he was never symptomatic of his anemia due to blood loss. He did not experience dizziness, chest pain, difficulty breathing at any point. On the day of discharge, the patient is feeling well. He has no abdominal pain. He denies chest pain, nausea, vomiting, difficulty breathing, dizziness, fever or chills. PHYSICAL EXAM: General: Elderly white male lying in hospital bed, appearing in no acute distress. Head: Normo-cephalic, atraumatic. Eyes: PERRL. Sclerae anicteric. ENT: Mucous membranes moist. Neck: Supple without JVD. Lungs: Clear to auscultation throughout. Cardiac: Irregularly irregular rhythm with regular rate. No murmurs appreciated. Lungs: Clear to auscultation throughout. Abdomen: Overactive bowel sounds x4 quadrants. No tenderness to palpation. Abdomen is soft, nondistended. No hepatosplenomegaly. Extremities: No clubbing, cyanosis or edema. Neuro: The patient is alert and oriented x3. No focal deficits. Skin: Skin is warm, dry, intact. Psych: The patient is cooperative and pleasant. DISCHARGE PLAN: Diet: The patient may return to normal unrestricted diet. Activity: The patient may return to her normal activity as tolerated. The patient is advised to follow up with his primary care provider in approximately 1 week and advised at this time that he have his CBC repeated. The patient was advised to discontinue. During his hospital stay, he was discussed the risks and benefits of continuing on Xarelto based on his high risk of additional GI bleed on Xarelto and given that his stroke risk is 2.9% and his repeat GI bleed score indicates 4.8 risk, the patient will discontinue Xarelto. He was advised to call his complaint specialist in [place] to further discuss this discontinuation of Xarelto. He can provide the phone number to make an appointment with [facility] Cardiology should he choose to see a local complaint specialist as well as the patient is in the [place] area approximately 5 months a year. He was advised to discontinue his aspirin as well. The patient is advised to return to the emergency department if he experiences black or red bloody stools. If he experiences chest pain, difficulty breathing, shortness of breath, dizziness, lightheadedness, or loss of consciousness. He is taking all other medications other than aspirin and Xarelto. CONDITION ON DISCHARGE: Stable. DISPOSITION: Home. TIME SPENT: Approximately 40 minutes was spent on this discharge, approximately half this time spent at bedside. ANA MARIA RUIZ [id number]/[facility] #: [id number] [place]
== END 2018-12-23 10:35 | disposition home or self-care (01) ==
LOC: ED 22:08 → MEDTELE 12-21 04:00 → MED 12-23 00:13
PROVIDERS: ADMIT Internal Medicine; ATTEND Internal Medicine
DX: K63.5 Polyp of colon (principal); K92.2 Gastrointestinal hemorrhage, unspecified; R42 Dizziness and giddiness; N40.0 Benign prostatic hyperplasia without lower urinary tract symptoms; I48.91 Unspecified atrial fibrillation; Z86.010 Personal history of colon polyps; R10.30 Lower abdominal pain, unspecified; Z88.0 Allergy status to penicillin; Z79.01 Long term (current) use of anticoagulants; Z86.19 Personal history of other infectious and parasitic diseases; N32.81 Overactive bladder; Z79.82 Long term (current) use of aspirin; G25.0 Essential tremor; R11.2 Nausea with vomiting, unspecified
CPT/HCPCS: 36415; 80048; 80053; 85014; 85018; 85025; 85027; 85610; 85730; 86850; 86900; 86901; 88305; 93005; 99156; 99157; 99285; A9270-GY; G0378; J2250; J3010